=== PATIENT | female | born 1980 | race Caucasian/White ===

== ENCOUNTER 2016-11-03 10:16 | Emergency (ER) | payer MEDICAID ==
[~2016-11-03] VITALS: Ht 167.6 cm; Wt 80.0 kg
[~2016-11-03 10:16] MED LIST: ALBU90AE INH; BECL8.7A7 INH; OXYC5CAP2 PO; PARO20TA98 PO; SPIR50TA2 PO
[2016-11-03 10:37] VITALS: BP 110/78
== END 2016-11-03 10:54 | disposition home or self-care (01) ==
LOC: ED 10:48
DX: K08.89 Other specified disorders of teeth and supporting structures (principal); J45.909 Unspecified asthma, uncomplicated; Z87.891 Personal history of nicotine dependence
CPT/HCPCS: 99283